=== PATIENT | female | born 1945 | race Caucasian/White ===

== ENCOUNTER 2017-04-05 01:02 | Day surgery (SDC) | payer OTHER ==
[~2017-04-05 01:02] MED LIST: ACET500; ACID REDUCER 1150 MG PO; ALBU3IS INH; ALBU90OI6 INH; ALBU90OI61 INH; AMLO5 PO; ATOR80 PO; Amlodipine Bes2.5 MG PO; Aspir 8181 MG PO; Bactrim Ds Tab1 EACH PO; CETI5 PO; CHOL10002 PO; CYAN1000 PO; DELTASONE20 MG PO; DEXA4 PO; DOCU100 PO; DULERA 100 MCG/13 GM INH; DULERA 200 MCG/13 GM INH; ENOX40I SC; ESCI10 PO; FISH1000 PO; Flonase 0.05% N16 GM; Flovent Diskus50 MCG; Hydrocodone-Ap1 EA23 PO; LIDO2TG30 TOP; MECL12.5 PO; OMEPRAZOLE MAGN20 MG PO; ONDA4 PO; OXYC10ER PO; OXYC5; OXYC5 PO; Omega 3 Fish O1 EACH PO; PROC10 PO; PSYL5.85P PO; Percocet 5-3251 EACH PO; Prinivil10 MG PO; RABE20 PO; RANI150 PO; ROPI1 PO; TIOT18 INH; Ventolin Soln3 ML INH; Zanaflex2 M1 PO; Zofran Odt4 MG PO
== END 2017-04-05 14:00 | disposition home or self-care (01) ==
LOC: ATC 01:02
DX: Z45.2 Encounter for adjustment and management of vascular access device (principal); F17.210 Nicotine dependence, cigarettes, uncomplicated; C54.1 Malignant neoplasm of endometrium; C77.5 Secondary and unspecified malignant neoplasm of intrapelvic lymph nodes
CPT/HCPCS: 96523; J1642

== ENCOUNTER 2017-05-03 01:04 | Day surgery (SDC) | payer OTHER | END 2017-05-03 23:18 | disposition home or self-care (01) | LOC: ATC 01:04 | DX: Z45.2 Encounter for adjustment and management of vascular access device (principal); C54.1 Malignant neoplasm of endometrium; Z92.21 Personal history of antineoplastic chemotherapy | CPT/HCPCS: J1642 ==

== ENCOUNTER → 2017-10-08 | Outpatient (CLI) | payer OTHER ==
[2017-10-08 17:36] LABS: Free Thyroxine 1.1 ng/dL (0.70-1.60)
[2017-10-08 17:41] LABS: Albumin, Blood 3.4 g/dL (3.4-5.0); Albumin/Globulin Ratio 1.1 (0.8-1.8); Bilirubin, Total 0.6 mg/dL (0.1-1.0); Bun/Creatinine Ratio 12.1 (12.0-20.0); Calcium, Blood 8.8 mg/dL (8.5-10.1); Creatinine, Blood 1.16 mg/dL (0.40-1.00); Potassium, Blood 4.2 mmol/L (3.5-5.5); Thyroid Stimulating Hormone 1.48 uIU/mL (0.360-4.800); Total Protein, Blood 6.4 g/dL (6.4-8.2)
== END | disposition home or self-care (01) ==
LOC: LAB SHORT 14:40 → LAB 14:40
PROVIDERS: Internal Medicine Hematology & Oncology
DX: Z00.00 Encounter for general adult medical examination without abnormal findings (principal); D53.9 Nutritional anemia, unspecified
CPT/HCPCS: 80053; 84439; 84443

== ENCOUNTER 2018-09-10 23:11 | Emergency (ER) | payer OTHER ==
[~2018-09-10] VITALS: Ht 157.5 cm; Wt 81.7 kg
== END 2018-09-11 01:13 | disposition home or self-care (01) ==
LOC: ER 23:11
DX: S40.011A Contusion of right shoulder, initial encounter (principal); S40.812A Abrasion of left upper arm, initial encounter; J44.9 Chronic obstructive pulmonary disease, unspecified; F17.200 Nicotine dependence, unspecified, uncomplicated; Z88.5 Allergy status to narcotic agent; Z88.8 Allergy status to other drugs, medicaments and biological substances; Z79.899 Other long term (current) drug therapy; W18.2XXA Fall in (into) shower or empty bathtub, initial encounter
CPT/HCPCS: 73030; 90471; 90714; 99283-25

== ENCOUNTER 2019-08-16 12:56 | Inpatient (IN) | payer OTHER ==
[~2019-08-16] VITALS: Ht 154.9 cm; Wt 86.9 kg
[~2019-08-16 12:56] MED LIST changes: -ALBU3IS INH; -ATOR80 PO; -Amlodipine Bes2.5 MG PO; -DULERA 100 MCG/13 GM INH; -Hydrocodone-Ap1 EA23 PO; -OMEPRAZOLE MAGN20 MG PO
[2019-08-16 13:37] LABS: BASOPHILS ABSOLUTE AUTO 0.02 K/mm3 (0.00-0.23); BASOPHILS PERCENT AUTO 0 % (0-2); EOSINOPHILS ABSOLUTE AUTO 0.11 K/mm3 (0.00-0.68); EOSINOPHILS PERCENT AUTO 1 % (0-6); Hematocrit 36.1 % (33.0-51.0); IMMATURE GRAN ABSOLUTE AUTO 0.05 K/mm3 (0.00-0.10); IMMATURE GRAN PERCENT AUTO 1 % (0-1); LYMPHOCYTES ABSOLUTE AUTO 1.97 K/mm3 (0.84-5.20); LYMPHOCYTES PERCENT AUTO 22 % (21-46); MONOCYTES ABSOLUTE AUTO 0.72 K/mm3 (0.16-1.47); MONOCYTES PERCENT AUTO 8 % (4-13); Mean Corpuscular HGB 30.8 pg (26.0-34.0); Mean Corpuscular HGB Conc 30.5 g/dL (31.5-36.5); Mean Corpuscular Volume 101 fL (80-100); Mean Platelet Volume 8.8 fL (9.1-12.4); NEUTROPHILS ABSOLUTE AUTO 5.96 K/mm3 (1.96-9.15); NEUTROPHILS PERCENT AUTO 68 % (41-73); Platelet Count 208 K/mm3 (150-400); RDW Coefficient Variation 14.6 % (11.7-14.2); Red Blood Cell Count 3.57 M/mm3 (3.80-5.20); White Blood Cell Count 8.83 K/mm3 (4.00-11.30)
[2019-08-16 13:53] LABS: Alanine Aminotransfer (ALT/SGP 30 U/L (12-78); Albumin, Blood 3.1 g/dL (3.4-5.0); Albumin/Globulin Ratio 0.8 (0.8-1.8); Alk Phos 81 U/L (50-136); Anion Gap 4 mmol/L (6-16); Aspartate Aminotrans (AST/SGOT 28 U/L (12-37); Bilirubin, Total 0.5 mg/dL (0.1-1.0); Blood Urea Nitrogen 12 mg/dL (8-24); Bun/Creatinine Ratio 13.3 (12.0-20.0); CO2, Blood 32 mmol/L (21-32); Calcium, Blood 9.1 mg/dL (8.5-10.1); Chloride, Blood 104 mmol/L (98-108); Globulin, Blood 3.8 g/dL (2.2-4.0); Glomerular Filtration Rate >60 (60-); Glucose, Blood 95 mg/dL (70-99); Potassium, Blood 3.9 mmol/L (3.5-5.5); Sodium, Blood 140 mmol/L (136-145); Total Protein, Blood 6.9 g/dL (6.4-8.2); Troponin I <0.015 ng/mL (0.000-0.040)
[2019-08-16] MEDS ORDERED: ATOR80 PO (15:23)
[2019-08-16] MEDS ORDERED: Amlodipine Bes2.5 MG PO (15:24)
[2019-08-16] MEDS ORDERED: OMEPRAZOLE MAGN20 MG PO (15:24)
[2019-08-16] MEDS ORDERED: SERT50 PO (15:25)
[2019-08-16] MEDS ORDERED: MONT10T PO (15:25)
[2019-08-16] MEDS ORDERED: TOLT2 PO (15:26)
[2019-08-16] MEDS ORDERED: Mirapex0.25 MG PO (15:26)
[2019-08-16] MEDS ORDERED: ZYRTEC10 M2 PO (15:27)
[2019-08-16] MEDS ORDERED: Hydrocodone-Ap1 EA23 PO (15:29)
[2019-08-16] MEDS ORDERED: IPRAT-ALBUT 0.5-3 ML NEB (15:30)
[2019-08-16] MEDS ORDERED: DULERA 200 MCG-13 GM INH ×2 (15:31→20:06)
[2019-08-16] MEDS ORDERED: Prednisone10 MG PO (15:32)
[2019-08-16] MEDS ORDERED: TRAZ100 PO (15:32)
[2019-08-16] MEDS ORDERED: STIOLTO RESPIMAT4 G1 INH (15:33)
[2019-08-16] MEDS ORDERED: FLONASE ALLERG9.9 M2 (15:34)
[2019-08-16] MEDS ORDERED: ALBU90OI INH (15:35)
--- NOTE | 2019-08-16 17:45 | NUR ---
NEW ER ADMIT PT ARRIVE RM 335 APPROX 1630. REPORT FROM ER THAT PT WAS GIVEN ACYCLOVIR FOR POSS SHINGLES RASH UNDER R BREAST. ON EXAM BY THIS RN & SALES TEACHER, NO ACTIVE SHINGLES NOTED, APPEARS TO BE SM AREA POSS YEAST RASH. NURSE SUPVR NOTIFIED. PT STATE REASON FOR HOSP INCREASED SHORTNESS OF BREATH, COUGH & WEAKNESS @ HOME, STATE FEELING IMPROVED FOLLOWING ER TX. STATE MILD SOB @ REST @ THIS TIME. LUNG DECREASED T/O w CRACKLES & EXP WHEEZE, BIOX 95% 4L. STATE HX SMOKING & COPD. DX COPD EXAC, POSS PNEUM, IV ANTIBX GIVEN IN ER. PT IS A/O X4, PLEASANT AFFECT. SBA TO BSC. VSS.
[2019-08-16] MEDS ORDERED: ALBU2.5V5 INH (20:07)
--- NOTE | 2019-08-16 21:58 | NUR ---
PT ALERT AND ORIENTED, JOKES WITH NURSE. VOICED ALLOW NURES TO SPEAK WITH DAUGHTER IN LAW "BESSY" [phone]. JUAN JOSE INQUIRED RE HOW PT WAS DOING AND ASKED IF SHE WAS GOING TO BE TESTED FOR "COVID" NO NOTED ORDERS SUGGESTING THIS NO NOTED S/S OF SUCH. SHE STATED SHE WOULD CALL BACK IN THE AM. CALL LIGHT IN REACH. PT INSTRUCTED TO USE CALL LIGHT PRIOR TO GETTING OUT OF BED FOR SAFETY. CALL LIGHT IN REACH
--- NOTE | 2019-08-17 04:25 | NUR ---
SHIFT SUMMARY HAS BEEN RESTING QUIETLY WITH FEW INTERRUPTIONS THIS SHIFT. CHEERFUL INTERACTIONS WITH STAFF. CALL LIGHT IN REACH. HAS BEEN ASSISTED TO REST ROOM ONEIL OUT OF BED FOR SAFETY. WILL CONTINUE TO MONITOR
[2019-08-17 05:39] LABS: BASOPHILS ABSOLUTE AUTO 0.01 K/mm3 (0.00-0.23); BASOPHILS PERCENT AUTO 0 % (0-2); EOSINOPHILS PERCENT AUTO 0 % (0-6); Hematocrit 36.8 % (33.0-51.0); Hemoglobin 11.2 g/dL (11.5-16.0); IMMATURE GRAN ABSOLUTE AUTO 0.05 K/mm3 (0.00-0.10); IMMATURE GRAN PERCENT AUTO 1 % (0-1); LYMPHOCYTES ABSOLUTE AUTO 0.69 K/mm3 (0.84-5.20); LYMPHOCYTES PERCENT AUTO 11 % (21-46); MONOCYTES ABSOLUTE AUTO 0.37 K/mm3 (0.16-1.47); MONOCYTES PERCENT AUTO 6 % (4-13); Mean Corpuscular HGB 30.9 pg (26.0-34.0); Mean Corpuscular HGB Conc 30.4 g/dL (31.5-36.5); Mean Corpuscular Volume 102 fL (80-100); Mean Platelet Volume 9.2 fL (9.1-12.4); NEUTROPHILS ABSOLUTE AUTO 5.14 K/mm3 (1.96-9.15); NEUTROPHILS PERCENT AUTO 82 % (41-73); Platelet Count 201 K/mm3 (150-400); RDW Coefficient Variation 14.3 % (11.7-14.2); RDW Standard Deviation 53.9 fL (35.1-46.3); Red Blood Cell Count 3.62 M/mm3 (3.80-5.20); White Blood Cell Count 6.26 K/mm3 (4.00-11.30)
[2019-08-17 06:05] LABS: Anion Gap 6 mmol/L (6-16); Blood Urea Nitrogen 14 mg/dL (8-24); Bun/Creatinine Ratio 18.2 (12.0-20.0); CO2, Blood 28 mmol/L (21-32); Calcium, Blood 9.4 mg/dL (8.5-10.1); Chloride, Blood 106 mmol/L (98-108); Creatinine, Blood 0.77 mg/dL (0.40-1.00); Glomerular Filtration Rate >60 (60-); Glucose, Blood 125 mg/dL (70-99); Potassium, Blood 4.6 mmol/L (3.5-5.5); Sodium, Blood 140 mmol/L (136-145)
--- NOTE | 2019-08-17 11:28 | NUR ---
CALLED BESSY GARDNER X 2. REACHED HER AND GAVE HER UPDATE. STS WILL UPDATE REST OF FAMILY.
--- NOTE | 2019-08-17 19:06 | NUR ---
ALERT. ORIENTED. INDEPENDENT IN ROOM. COOPERATIVE. PLEASANT. ABLE TO MAKE NEEDS KNOWN. ON SAME FLOW OXYGEN AT HOME. STS LITTLE PAIN RT SIDE CHEST WHICH IS WHAT SHE HAD AT ADMIT, BUT GETTING BETTER. REPORT TO NIGHT RN
[2019-08-18 05:42] LABS: BASOPHILS ABSOLUTE AUTO 0.02 K/mm3 (0.00-0.23); BASOPHILS PERCENT AUTO 0 % (0-2); EOSINOPHILS ABSOLUTE AUTO 0.01 K/mm3 (0.00-0.68); EOSINOPHILS PERCENT AUTO 0 % (0-6); Hematocrit 36.1 % (33.0-51.0); IMMATURE GRAN ABSOLUTE AUTO 0.05 K/mm3 (0.00-0.10); IMMATURE GRAN PERCENT AUTO 1 % (0-1); LYMPHOCYTES PERCENT AUTO 31 % (21-46); MONOCYTES PERCENT AUTO 8 % (4-13); Mean Corpuscular HGB 30.6 pg (26.0-34.0); Mean Corpuscular HGB Conc 30.5 g/dL (31.5-36.5); Mean Corpuscular Volume 100 fL (80-100); Mean Platelet Volume 8.8 fL (9.1-12.4); NEUTROPHILS ABSOLUTE AUTO 5.41 K/mm3 (1.96-9.15); NEUTROPHILS PERCENT AUTO 60 % (41-73); Platelet Count 228 K/mm3 (150-400); RDW Coefficient Variation 14.3 % (11.7-14.2); RDW Standard Deviation 53.4 fL (35.1-46.3); White Blood Cell Count 8.99 K/mm3 (4.00-11.30)
[2019-08-18 06:04] LABS: Anion Gap 3 mmol/L (6-16); Blood Urea Nitrogen 22 mg/dL (8-24); CO2, Blood 34 mmol/L (21-32); Calcium, Blood 9.4 mg/dL (8.5-10.1); Chloride, Blood 104 mmol/L (98-108); Creatinine, Blood 0.92 mg/dL (0.40-1.00); Glomerular Filtration Rate >60 (60-); Glucose, Blood 83 mg/dL (70-99); Potassium, Blood 3.7 mmol/L (3.5-5.5); Sodium, Blood 141 mmol/L (136-145)
--- NOTE | 2019-08-18 07:35 | NUR ---
SHIFT SUMMARY A/O, ABLE TO MAKE NEEDS KNOWN. COOPERATIVE WITH CARE. ANSWERS QUESTIONS APPRORPIATELY. NO C/O PAIN/DISCOMFORT. CONTINUES TO HAVE NONPRODUCTIVE COUGH AND HAS REMAINED ON 4L VIA NC. APPEARED TO REST MUCH OF NIGHT. NO ACUTE CHANGES NOTED OVERNIGHT. BED IN LOWEST POSITION. CALL LIGHT AND BELONGINGS WITHIN REACH. CONTINUED TO MONITOR OVERNGIHT. REPORT GIVEN TO ONCOMING RN.
--- NOTE | 2019-08-18 09:29 | NUR ---
ADVISED PATIENT HAS GONE THRU AN IV A DAY. POOR VEINS. GETS ROCEPHIN AND SOLUMEDROL. ASKED IF POSSIBLY CHANGE MEDS. MD WILL LOOK AT CHART. PATIENT DOING MUCH BETTER.
--- NOTE | 2019-08-18 17:37 | NUR ---
ALERT. ORIENTED. CHEERFUL. PLEASANT. SLIGHTLY LABORED RESPIRATIONS DURING EXERTION. ON HER NORMAL HOME O2 OF 4 LPM. INDEPENDENT IN ROOM. IV CHANGED TODAY WITH MD AWARE IV'S LASTING ABOUT 24 HOURS. NO ACUTE CHANGES. ABLE TO MAKE NEEDS KNOWN. WCTM
--- NOTE | 2019-08-19 04:01 | NUR ---
SHIFT SUMMARY PATIENT HAD NO ACUTE CHANGES OBSERVED. AXOX 3 AND INDEPENDENT IN ROOM. RT IN FOR BREATHING TX. CBG 170. PIV REMAINS INTACT. VSS/AFEBRILE. DENIES PAIN, SOB, AND N/V. ON 4L O2 NC BASELINE. DROPLET PRECAUTIONS R/O COVID-19. CALL LIGHT IN REACH. BED IN LOWEST POSITION. WILL CONTINUE TO MONITOR UNTIL DAY SHIFT NURSE ASSUMES CARE.
[2019-08-19] MEDS ORDERED: Prednisone10 MG PO (13:58)
[2019-08-19] MEDS ORDERED: AZIT500 PO (14:00)
[2019-08-19] MEDS ORDERED: CEFD300 PO (14:00)
--- NOTE | 2019-08-19 15:04 | NUR ---
REVIEW D'C INSTRUCTIONS. AWARE TO [employer] [facility] X 3 AT [facility] REVIEW MEDS AND HOW/WHEN TO TAKE. EVERJAVIDEEN WILL CALL HER WITH F/U APPT. AWARE CAN RETURN TO E.R IF ANY PROBLEMS.ANSWER ALL QUESTIONS. AWAITING RIDE.
== END 2019-08-19 15:25 | disposition home or self-care (01) | DRG 193 ==
LOC: ER 12:56 → MEDS 14:48
PROVIDERS: Emergency Medicine; Internal Medicine; Student in an Organized Health Care Education/Training Program; ADMIT Internal Medicine Endocrinology, Diabetes & Metabolism
DX: J18.9 Pneumonia, unspecified organism (principal); J96.21 Acute and chronic respiratory failure with hypoxia; J44.0 Chronic obstructive pulmonary disease with (acute) lower respiratory infection; J44.1 Chronic obstructive pulmonary disease with (acute) exacerbation; F17.210 Nicotine dependence, cigarettes, uncomplicated; E11.9 Type 2 diabetes mellitus without complications; I10 Essential (primary) hypertension; R21 Rash and other nonspecific skin eruption; Z99.81 Dependence on supplemental oxygen; Z88.5 Allergy status to narcotic agent; Z88.8 Allergy status to other drugs, medicaments and biological substances; Z79.51 Long term (current) use of inhaled steroids; Z79.52 Long term (current) use of systemic steroids
CPT/HCPCS: 36415; 71045; 80048; 80053; 82947; 83605; 83880; 84484; 85025; 87040; 93005; 93010; 94640; 94760; 96365; 96375; 97112; 97162; 97165; 97530; 99285-25; A9270-GY; J0456; J0696; J1650; J2930; J7050; J7512; U0003

== ENCOUNTER 2019-12-18 17:47 | Emergency (ER) | payer OTHER ==
[~2019-12-18] VITALS: Ht 162.6 cm; Wt 99.8 kg
[~2019-12-18 17:47] MED LIST changes: +ALBU2.5V5 INH; +ALBU90OI INH; +ATOR80 PO; +AZIT500 PO; +Amlodipine Bes2.5 MG PO; +CEFD300 PO; +DULERA 200 MCG-13 GM INH; +FLONASE ALLERG9.9 M2; +Hydrocodone-Ap1 EA23 PO; +IPRAT-ALBUT 0.5-3 ML NEB; +MONT10T PO; +Mirapex0.25 MG PO; +OMEPRAZOLE MAGN20 MG PO; +Prednisone10 MG PO; +SERT50 PO; +STIOLTO RESPIMAT4 G1 INH; +TOLT2 PO; +TRAZ100 PO; +ZYRTEC10 M2 PO
== END 2019-12-18 23:37 | disposition short-term general hospital (02) ==
LOC: ER 17:47
DX: S52.022A Displaced fracture of olecranon process without intraarticular extension of left ulna, initial encounter for closed fracture (principal); S53.025A Posterior dislocation of left radial head, initial encounter; S52.122A Displaced fracture of head of left radius, initial encounter for closed fracture; I10 Essential (primary) hypertension; J44.9 Chronic obstructive pulmonary disease, unspecified; E11.9 Type 2 diabetes mellitus without complications; F17.210 Nicotine dependence, cigarettes, uncomplicated; Z79.899 Other long term (current) drug therapy; Z79.52 Long term (current) use of systemic steroids; Z88.5 Allergy status to narcotic agent; Z88.8 Allergy status to other drugs, medicaments and biological substances; Z20.828 Contact with and (suspected) exposure to other viral communicable diseases; W01.0XXA Fall on same level from slipping, tripping and stumbling without subsequent striking against object, initial encounter
CPT/HCPCS: 25520; 36415; 73070; 73080; 96374-59; 96375-59; 96376-59; 99284-25; J2405; J3010; U0003

== ENCOUNTER → 2021-05-04 | Outpatient (CLI) | payer OTHER | LOC: LAB SHORT 15:00 | DX: K21.9 Gastro-esophageal reflux disease without esophagitis (principal) | CPT/HCPCS: 87338 ==

== ENCOUNTER 2022-01-28 10:24 | Emergency (ER) | payer OTHER ==
[~2022-01-28] VITALS: Ht 152.4 cm; Wt 83.9 kg
[2022-01-28 10:55] LABS: BASOPHILS ABSOLUTE AUTO 0.02 K/mm3 (0.00-0.23); BASOPHILS PERCENT AUTO 0 % (0-2); EOSINOPHILS ABSOLUTE AUTO 0.03 K/mm3 (0.00-0.68); EOSINOPHILS PERCENT AUTO 1 % (0-6); Hematocrit 36.8 % (33.0-51.0); Hemoglobin 11.2 g/dL (11.5-16.0); IMMATURE GRAN ABSOLUTE AUTO 0.03 K/mm3 (0.00-0.10); IMMATURE GRAN PERCENT AUTO 1 % (0-1); LYMPHOCYTES ABSOLUTE AUTO 0.39 K/mm3 (0.84-5.20); LYMPHOCYTES PERCENT AUTO 7 % (21-46); MONOCYTES ABSOLUTE AUTO 0.49 K/mm3 (0.16-1.47); MONOCYTES PERCENT AUTO 8 % (4-13); Mean Corpuscular HGB 31.6 pg (26.0-34.0); Mean Corpuscular HGB Conc 30.4 g/dL (31.5-36.5); Mean Corpuscular Volume 104 fL (80-100); Mean Platelet Volume 9.3 fL (9.1-12.4); NEUTROPHILS ABSOLUTE AUTO 5.05 K/mm3 (1.96-9.15); NEUTROPHILS PERCENT AUTO 84 % (41-73); Platelet Count 138 K/mm3 (150-400); RDW Coefficient Variation 13.5 % (11.7-14.2); RDW Standard Deviation 52.5 fL (35.1-46.3); Red Blood Cell Count 3.54 M/mm3 (3.80-5.20); White Blood Cell Count 6.01 K/mm3 (4.00-11.30)
[2022-01-28 11:06] LABS: Albumin, Blood 3.1 g/dL (3.4-5.0); Albumin/Globulin Ratio 1.1 (0.8-1.8); Bilirubin, Total 0.7 mg/dL (0.1-1.0); Bun/Creatinine Ratio 17.5 (12.0-20.0); Calcium, Blood 8.9 mg/dL (8.5-10.1); Creatinine, Blood 1.03 mg/dL (0.40-1.00); Globulin, Blood 2.9 g/dL (2.2-4.0); Potassium, Blood 4.2 mmol/L (3.5-5.5)
[2022-01-28 12:02] LABS: Influenza B, PCR NEGATIVE (NEGATIVE); Resp Syncytial Virus, PCR NEGATIVE (NEGATIVE); SARS-Cov-2 (COVID-19) PCR, MMC NEGATIVE (NEGATIVE)
[2022-01-28 12:17] LABS: Influenza A, PCR POSITIVE (NEGATIVE)
[2022-01-28] MEDS ORDERED: OSEL75CA PO (12:29)
== END 2022-01-28 12:49 | disposition home or self-care (01) ==
LOC: ER 10:24
PROVIDERS: Emergency Medicine
DX: J10.1 Influenza due to other identified influenza virus with other respiratory manifestations (principal); J44.9 Chronic obstructive pulmonary disease, unspecified; I10 Essential (primary) hypertension; E11.9 Type 2 diabetes mellitus without complications; F17.210 Nicotine dependence, cigarettes, uncomplicated; W18.30XA Fall on same level, unspecified, initial encounter; Z88.8 Allergy status to other drugs, medicaments and biological substances; Z88.5 Allergy status to narcotic agent; Z79.899 Other long term (current) drug therapy; Z79.52 Long term (current) use of systemic steroids; Z20.822 Contact with and (suspected) exposure to COVID-19; Z99.81 Dependence on supplemental oxygen
CPT/HCPCS: 0241U; 71045; 80053; 85025; 93005; 93010; A9270; J7030